=== PATIENT | female | born 1990 | race American Indian/Alaskan Native ===

== ENCOUNTER 2019-09-03 04:30 | Emergency (ER) | payer SELFPAY ==
[2019-09-03] MEDS ORDERED: TORADOL IM ONE (05:15)
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
[2019-09-03 06:07] VITALS: BP 138/95
== END 2019-09-03 06:16 | disposition home or self-care (01) ==
LOC: ED 04:30
DX: K08.89 Other specified disorders of teeth and supporting structures (principal); F17.200 Nicotine dependence, unspecified, uncomplicated; Z79.899 Other long term (current) drug therapy
CPT/HCPCS: 96372; 99282; J1885

== ENCOUNTER 2020-10-11 07:21 | Emergency (ER) | payer MEDICAID ==
[2020-10-11] MEDS ORDERED: KETOROLAC 60 MG/2 ML INJ IM ONE (08:40)
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
[2020-10-11 09:37] VITALS: BP 146/82
== END 2020-10-11 09:05 | disposition home or self-care (01) ==
LOC: ED 07:21
DX: K08.89 Other specified disorders of teeth and supporting structures (principal); F17.200 Nicotine dependence, unspecified, uncomplicated; Z98.890 Other specified postprocedural states; Z79.899 Other long term (current) drug therapy
CPT/HCPCS: 96372; 99281; J1885

== ENCOUNTER 2021-07-21 13:35 | Emergency (ER) | payer MEDICAID ==
[2021-07-21] MEDS ORDERED: NEOMY 3.5 MG/BACIT 400 UNITS/POLY B 5000 UNITS/GM OINT PACKET TP ONE (14:42)
[2021-07-21] MEDS ORDERED: TETANUS,DIPH,PERTUSS(ACELL) VACCINE 0.5 ML SYRINGE IM ONE (14:42)
[2021-07-21] MEDS ORDERED: SODIUM CHLORIDE 0.9% IRR 500 ML BOTTLE IR ONE (14:42)
[2021-07-21] MEDS ORDERED: ACETAMINOPHEN 325 MG TAB PO ONE (14:42)
[2021-07-21] MEDS ORDERED: cephALEXin 500 MG CAP PO ONE (14:42)
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
[2021-07-21 15:22] VITALS: BP 152/105
== END 2021-07-21 16:02 | disposition home or self-care (01) ==
LOC: ED 13:35
DX: S61.052A Open bite of left thumb without damage to nail, initial encounter (principal); W50.3XXA Accidental bite by another person, initial encounter; Y93.89 Activity, other specified; Y92.89 Other specified places as the place of occurrence of the external cause; Y99.8 Other external cause status
CPT/HCPCS: 90471; 90715; 99283; A6250; 99282